=== PATIENT | female | born 1945 | race Caucasian/White ===

== ENCOUNTER → 2023-10-23 12:22 | Outpatient (REF) | payer OTHER, SELFPAY | LOC: RAD 12:22 | PROVIDERS: ATTENDING PHYSICIAN Urology; FAMILY PHYSICIAN Family Medicine | DX: N28.89 Other specified disorders of kidney and ureter (principal) | CPT/HCPCS: 71260; 74170; Q9967 ==

== ENCOUNTER → 2023-11-13 10:12 | Outpatient (REF) | payer OTHER, SELFPAY | LOC: RAD 10:12 | PROVIDERS: ATTENDING PHYSICIAN Urology; FAMILY PHYSICIAN Family Medicine | DX: N28.89 Other specified disorders of kidney and ureter (principal); N26.1 Atrophy of kidney (terminal) | CPT/HCPCS: 78708; A9539 ==

== ENCOUNTER → 2023-11-30 11:29 | Outpatient (REF) | payer OTHER, SELFPAY | LOC: RADI 11:29 | PROVIDERS: ATTENDING PHYSICIAN Internal Medicine Cardiovascular Disease; FAMILY PHYSICIAN Family Medicine | DX: N28.89 Other specified disorders of kidney and ureter (principal) ==

== ENCOUNTER 2024-01-09 11:27 | Day surgery (SDC) | payer OTHER, SELFPAY ==
[2024-01-09] VITALS (18 sets, daily range): BP systolic 74–175; BP diastolic 55–88
[2024-01-09 07:58] LABS: % Basophils 1.3 % (0-2); % Eosinophils 2.4 % (0-6); % Immature Granulocytes 0.4 % (0-0.5); % Lymphocytes 17.7 % (20.5-51.1); % Monocytes 8.2 % (1.7-9.3); Absolute Basophils 0.1 10^3/uL (0-0.2); Absolute Eosinophils 0.2 10^3/uL (0-0.7); Absolute Lymphocytes 1.4 10^3/uL (1.2-3.4); Absolute Monocytes 0.6 10^3/uL (0.1-0.6); Absolute Neutrophils 5.4 10^3/uL (1.4-6.5); Hematocrit 33.3 % (37.0-47.0); Hemoglobin 11.2 g/dL (12.0-16.0); Mean Corp Hgb Conc. 33.6 g/dL (33.0-37.0); Mean Corpuscular Hgb 28.1 pg (27.0-31.0); Mean Corpuscular Volume 83.5 fL (81.0-99.0); Mean Platelet Volume 9.9 fL (7.4-10.4); Nucleated Red Blood Cells % 0 %; Platelet Count 339 10^3/uL (130-400); Red Blood Cell Count 3.99 10^6/uL (4.20-5.40); Red Cell Dist. Width 13.3 % (11.5-14.5); White Blood Cell Count 7.8 10^3/uL (4.8-10.8)
[2024-01-09 08:07] LABS: INR 1.05; PT 13.8 Sec (11.4-14.6)
[2024-01-09 08:08] LABS: APTT 36.7 Sec (23.4-35.0)
[2024-01-09 08:19] LABS: ALT (SGPT) 19 U/L (0-35); AST (SGOT) 25 U/L (14-36); Albumin 4.2 g/dl (3.5-5.0); Alkaline Phosphatase 202 U/L (38-126); Blood Urea Nitrogen 26 mg/dl (7-17); Carbon Dioxide 22 mmol/L (22-30); Chloride 100 mmol/L (98-107); Direct Bilirubin 0.3 mg/dl (0.0-0.4); Glucose 112 mg/dl (70-99); LDH 175 U/L (120-246); Potassium 4.8 mmol/L (3.5-5.1); Sodium 134 mmol/L (135-145); Total Bilirubin 0.6 mg/dl (0.2-1.3); eGFR 41.83
[2024-01-09] MEDS: NSS 1000 IV ×3 (08:22→16:51)
[2024-01-09] MEDS: ANCEF 10 IV (08:37)
[2024-01-09] MEDS: DILAUDID 0.25 MG IV ×2 (11:45→12:43)
--- NOTE | 2024-01-09 17:05 | PTCARENOTE ---
Received Pt from PACU s/p renal ablation. Howell removed at 1600. Pt tolerating regular diet. VSS. Denies pain/discomfort. at bedside. Call khalil within reach.
--- NOTE | 2024-01-09 17:33 | W.PN.UPDATE ---
Update Note
Progress Note Update
Pt doing well post percutaneous microwave ablation left renal mass. Howell removed. Mild discomfort L flank, controlled. Dressing w tiny spot old blood, otherwise dry. L flank mildly tender, no ecchymoses or induration. Anticipate D/C in AM. Follow
up CT or MRI 3-6 mos.
[2024-01-09] MEDS: ROXICODONE 5 MG PO (20:28)
[2024-01-10] MEDS: NSS IV ×2 (01:32→08:34)
--- NOTE | 2024-01-10 07:24 | W.PN.GENERIC ---
Assessment / Plan
-
78 yo female with left renal mass s/p thermal ablation. The procedure was technically successful. She is feeling well. She is voiding spontaneously and tolerating POs
Stable for discharge today
Recommend follow up CT scan in 3 months
Physician Progress Note
Subjective
This is a pleasant 78-year-old female who was found to have a 2.5 cm lesion of the left posterior kidney on CT scan of the lumbar spine in September 2022. A CT scan on November 05, 2023, showed interval growth of this left renal mass compared to the imaging
from September 2022. She underwent renal thermal ablation yesterday. She feels well. She denies any fever, chills, abdominal pain, nausea, vomiting, flank pain, hematuria or dysuria. She is voiding spontaneously. She is tolerating POs
PMH: Renal mass, atrophic left kidney, high cholesterol, hypertension, primary biliary cirrhosis, hyperlipidemia, lumbar radiculopathy, carotid artery disease, PAD, DJD.
PSH: Carotid artery, TKA x2, hysterectomy.
Social History: Patient currently smokes 2 cigarettes daily. She is and lives with her .
Allergies: Latex.
Current Medications: Amlodipine-Benazepril 5-20, dicyclomine 10 mg, Toprol-XL 50 mg, Ursodiol 300 mg, Vytorin 10-20,.
Objective
Vital Signs
Temp Pulse Resp BP Pulse Ox
99.5 F 94 20 155/71 96
01/09/24 23:31 01/09/24 23:31 01/09/24 23:31 01/09/24 23:31 01/09/24 23:31
Lab Results
01/09/24 07:46
01/09/24 07:46
This is a WNWD 78 yo female in NAD. COlor is good. Skin is warm and dry. She is missing left upper front tooth. Neck is supple. Heart is regular. Lungs are CTA. Abdomen is soft and nentender with bowel sounds. No CVAT. Dressing with small
drop of dried blood. No hematoma. No CCE. Ambulating independently
[2024-01-10 07:41] VITALS: BP 164/77
--- NOTE | 2024-01-10 09:18 | CM ---
Alert awake oriented patient who lives with her Jarocho in a 3 story town home with 4 steps to enter and 14 steps to bed/bathroom. She is independent in driving and all activates of daily living.No adaptive device. Howell removed Pt
voiding.Jarocho will drive her home.
No VN in past . No SNF hx
Pharmacy [facility] [address]
PCP Dr Cheek
PLAN Home with no anticipated needs
== END 2024-01-10 09:24 | disposition home or self-care (01) ==
LOC: RADI 11:27
PROVIDERS: ATTENDING PHYSICIAN Radiology Vascular & Interventional Radiology; FAMILY PHYSICIAN Family Medicine; REFERRING PHYSICIAN Urology
DX: N28.89 Other specified disorders of kidney and ureter (principal)
CPT/HCPCS: 50592; 36415; 77013; 80053; 82248; 83615; 85025; 85610; 85730

== ENCOUNTER → 2024-05-15 16:30 | Outpatient (REF) | payer OTHER, SELFPAY | LOC: RAD 16:30 | PROVIDERS: ATTENDING PHYSICIAN Urology; FAMILY PHYSICIAN Family Medicine | DX: C64.2 Malignant neoplasm of left kidney, except renal pelvis (principal) | CPT/HCPCS: 74170; Q9967 ==

== ENCOUNTER → 2024-06-25 13:18 | Outpatient (REF) | payer OTHER, SELFPAY | LOC: RAD 13:18 | PROVIDERS: ATTENDING PHYSICIAN Urology; FAMILY PHYSICIAN Family Medicine | DX: N28.89 Other specified disorders of kidney and ureter (principal); I82.220 Acute embolism and thrombosis of inferior vena cava | CPT/HCPCS: 71260; 74170; Q9967 ==

== ENCOUNTER → 2024-10-01 08:06 | Outpatient (REF) | payer OTHER, SELFPAY | LOC: RAD 08:06 | PROVIDERS: ATTENDING PHYSICIAN Urology; FAMILY PHYSICIAN Family Medicine | DX: C64.9 Malignant neoplasm of unspecified kidney, except renal pelvis (principal); N28.89 Other specified disorders of kidney and ureter | CPT/HCPCS: 74178; Q9967 ==

== ENCOUNTER → 2024-12-30 07:03 | Outpatient (REF) | payer OTHER, SELFPAY | LOC: RAD 07:03 | PROVIDERS: ATTENDING PHYSICIAN Nurse Practitioner Adult Health; FAMILY PHYSICIAN Family Medicine; REFERRING PHYSICIAN Internal Medicine | DX: C64.9 Malignant neoplasm of unspecified kidney, except renal pelvis (principal) | CPT/HCPCS: 71260; 74178; Q9967 ==

== ENCOUNTER 2025-03-06 15:00 | Emergency (ER) | payer OTHER, SELFPAY ==
[2025-03-06 15:17] VITALS: BP 145/70
[2025-03-06 15:43] LABS: Hematocrit 36.1 % (37.0-47.0); Hemoglobin 11.9 g/dL (12.0-16.0); Mean Corp Hgb Conc. 33.0 g/dL (33.0-37.0); Mean Corpuscular Volume 80.6 fL (81.0-99.0); Nucleated Red Blood Cells % 0 %; Platelet Count 154 10^3/uL (130-400); Red Cell Dist. Width 16.3 % (11.5-14.5)
[2025-03-06 15:58] LABS: ALT (SGPT) 20 U/L (0-35); AST (SGOT) 29 U/L (14-36); Albumin 3.2 g/dl (3.5-5.0); Alkaline Phosphatase 131 U/L (38-126); Blood Urea Nitrogen 25 mg/dl (7-17); Calcium 8.5 mg/dl (8.4-10.2); Carbon Dioxide 21 mmol/L (22-30); Chloride 106 mmol/L (98-107); Glucose 131 mg/dl (70-99); Potassium 4.1 mmol/L (3.5-5.1); Sodium 133 mmol/L (135-145); Total Protein 6.1 g/dl (6.3-8.2); eGFR 37.80
[2025-03-06 18:53] VITALS: BMI 25.5
[2025-03-06 19:02] VITALS: BP 172/94
[2025-03-06 20:00] VITALS: BP 178/90
--- NOTE | 2025-03-06 20:06 | ED.GENMED ---
History of Present Illness
General
Chief Complaint: Swelling
Source: patient, spouse and family
Exam Limitations: none
Time Seen by Provider: 03/06/25 19:44
Nursing documentation reviewed up to this point in time: agreed with
History of Present Illness
History of Present Illness:
Note:
CHIEF COMPLAINT(S)
Swelling of the legs for two days.
HISTORY OF PRESENT ILLNESS
The patient is an 80-year-old female with a history of renal cell carcinoma treated with radio ablation. She presents with bilateral leg swelling, which has been present for the past two days. She describes this episode as the most significant
swelling she has experienced. The patient is on Apixaban (Eliquis) and has been compliant with the medication. She reports no known venous clots but experiences difficulty breathing, especially on the left side, which resolves. She denies any
abdominal swelling or pain. The numbness and pain were noted under her toes and were initially different on one side compared to the other, suggesting a potential pinched nerve. The patient also reports chronic lower back pain.
ADDITIONAL HISTORY OBTAINED FROM SOURCES OTHER THAN THE PATIENT
Per the family member accompanying the patient, the patient had numbness and difficulty walking, with pain in the toes. The family member also helped communicate information as the patient is hard of hearing.
PAST MEDICAL AND SURGICAL HISTORY
The patient has a history of renal cell carcinoma treated with radio ablation. There were no surgeries performed on the kidneys.
SOCIAL DETERMINANTS AFFECTING HEALTH
The patient was brought in by a family member who assists with communication, indicating potential hearing impairment-related communication barriers.
REVIEW OF SYSTEMS
- Cardiovascular: Bilateral leg swelling.
- Respiratory: Intermittent dyspnea, particularly on the left side.
- Neurological: Numbness under the toes, difficulty walking.
- Musculoskeletal: Chronic lower back pain.
PHYSICAL EXAM
General: Alert, no acute distress.
Skin: Warm, dry.
Head: Normocephalic, atraumatic.
Neck: Supple, trachea midline.
Eyes, Ears, Nose, Mouth, and Throat: Oral mucosa moist.
Cardiovascular: Normal peripheral perfusion, no edema.
Respiratory: Respirations are non-labored.
Gastrointestinal: Abdomen non-distended.
Back: Normal range of motion, normal alignment.
Musculoskeletal: Normal ROM, normal strength.
Neurological: Alert and oriented to person, place, time, and situation, no focal neurological deficits observed.
Psychiatric: Cooperative, appropriate mood & affect.
PROBLEM LIST
Acute Problems:
- Bilateral leg swelling
- Dyspnea
- Numbness and pain under the toes
Chronic Problems:
- Chronic lower back pain
- Renal cell carcinoma
PLAN
1. Order an ultrasound to evaluate the legs for potential blood clots.
2. Obtain chest X-ray to rule out signs of heart failure.
3. Conduct laboratory tests to assess renal function and other potential causes of symptoms.
4. Review medical records for any relevant prior diagnostic results.
DIFFERENTIAL DIAGNOSIS
The differential diagnosis includes, in no particular order and is not limited to:
1. Congestive heart failure
2. Deep vein thrombosis
3. Lymphedema
4. Chronic venous insufficiency
5. Acute renal failure
6. Peripheral neuropathy
7. Pulmonary embolism
8. Venous thromboembolism
9. Medication side effect (Apixaban)
10. Hypoalbuminemia
CARE-UPDATE
03/07/25:47
CT scan indicates progression of thrombosis involving the inferior vena cava up to the atrium and extending into the left renal vein, correlating with the observed increase in patients edema.
CARE-UPDATE
03/07/25:[address] Hung, vascular surgeon, who recommends PRANAY WRAPs to bilateral lower extremities. Follow-up with oncology at [place] is advised.
Disposition:
SUMMARY OF ENCOUNTER
The patient was seen in the emergency department to address significant bilateral leg swelling and concerns related to renal cell carcinoma and potential thrombosis progression. The visit included diagnostic considerations and consultations to
evaluate a chronic thrombosis in the inferior vena cava extending into bilateral lower extremities.
DISPOSITION
The patient was discharged with instructions to follow up with [facility].
ASSESSMENT
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
MANAGEMENT OF THE PATIENTS CARE WAS DISCUSSED WITH
Consultation with Dr. Hung, a vascular surgeon, confirmed the diagnosis of chronic thrombosis and concluded no further indication for thrombolytic or surgical intervention at this time.
INDEPENDENT REVIEW OF LABS AND INTERPRETATION OF TESTS
My independent interpretation of recent CT imaging indicates the progression of thrombosis involving the inferior vena cava up to the atrium and extending into the left renal vein, correlating with the observed increase in the patients edema.
FOLLOW-UP INSTRUCTIONS
The patient should follow up with [facility] for continued oncology management and any further interventions deemed necessary.
MEDICATION RECONCILIATION
Current medications include Apixaban (Eliquis).
MEDICAL DECISION MAKING
- Number and Complexity of Problems Addressed: Chronic conditions affecting care include renal cell carcinoma and thrombosis. Differential Diagnosis includes:
1. Congestive heart failure
2. Deep vein thrombosis
3. Lymphedema
4. Chronic venous insufficiency
5. Acute renal failure
6. Peripheral neuropathy
7. Pulmonary embolism
8. Venous thromboembolism
9. Medication side effect (Apixaban)
10. Hypoalbuminemia
- Data:
Category 1: Non-emergency department records reviewed include the patients past CT scan results showing thrombosis progression.
Category 2: Clinical information was obtained from family members accompanying the patient due to her hearing impairment and to ensure accurate history taking.
Category 3: Discussion of management with Dr. Hung, vascular surgeon, confirmed no need for immediate thrombolytic or surgical interventions.
-Risk: Prescription drug management is ongoing with Apixaban for anticoagulation therapy, requiring regular monitoring for potential complications from thrombosis.
DIAGNOSIS
1. 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
2. Renal cell carcinoma - ICD-10: C64.9
Past History
Past History
ED Past Medical History: HTN, Hypercholesterolemia and Other (Cirrhosis (unknown etiology), carotid stenosis)
ED Past Surgical History: Orthopedic and Other (Carotids)
Social History
Alcohol: Occasional
Phy Exam
Physical Exam
Physical Exam:
,.
Scores
Heart Failure Risk
Heart Failure Risk Score: Not Applicable
Course
Orders/Labs/Results
Orders:
Orders
03/06/25 15:33
Complete Blood Count/With Diff Urgent
Comprehensive Metabolic Panel Urgent
03/06/25 20:03
US Periph Venous LOWER Ext Leonel Urgent
Comment:
Reason For Exam: bilateral leg swelling
03/06/25 20:35
CT Chest/abd/pel W Iv Cont Urgent
Comment:
Reason For Exam: extensive thromosis, leg swelling
03/06/25 21:28
NT-proBNP Urgent
Troponin I Urgent
03/06/25 21:59
Acetaminophen [Tylenol] 1,000 mg PO NOW STA
03/06/25 22:17
Pranay Wrap Left-Treatment ONCE
Pranay Wrap Right-Treatment ONCE
Abnormal Lab Results
03/06/25
15:33
WBC 11.3 H 10^3/uL
(4.8-10.8)
Hgb 11.9 L g/dL
(12.0-16.0)
Hct 36.1 L %
(37.0-47.0)
MCV 80.6 L fL
(81.0-99.0)
MCH 26.6 L pg
(27.0-31.0)
RDW 16.3 H %
(11.5-14.5)
MPV 11.0 H fL
(7.4-10.4)
Abs Immat Gran (auto) 0.1 H 10^3/uL
(0-0.05)
Absolute Neuts (auto) 9.4 H 10^3/uL
(1.4-6.5)
Absolute Lymphs (auto) 1.0 L 10^3/uL
(1.2-3.4)
Absolute Monos (auto) 0.8 H 10^3/uL
(0.1-0.6)
Neutrophils % 83.3 H %
(42.2-75.2)
Lymphocytes % 9.0 L %
(20.5-51.1)
Sodium 133 L mmol/L
(135-145)
Carbon Dioxide 21 L mmol/L
(22-30)
BUN 25 H mg/dl
(7-17)
Creatinine 1.4 H mg/dL
(0.6-1.0)
Glucose 131 H mg/dl
(70-99)
Alkaline Phosphatase 131 H U/L
(38-126)
Total Protein 6.1 L g/dl
(6.3-8.2)
Albumin 3.2 L g/dl
(3.5-5.0)
03/06/25 15:33
03/06/25 15:33
Vital Signs
Initial and Last Documented VS:
Initial Vital Signs
Temp Pulse Resp BP Pulse Ox
98.2 F 90 16 145/70 97
03/06/25 15:17 03/06/25 15:17 03/06/25 15:17 03/06/25 15:17 03/06/25 15:17
Last Documented Vital Signs
Temp Pulse Resp BP Pulse Ox
98.2 F 100 25 154/88 98
03/06/25 15:17 03/06/25 22:20 03/06/25 22:20 03/06/25 22:20 03/06/25 22:20
*Pulse Oximetry
SaO2: 97
Oxygen Mode of Delivery: Room air
Patient hypoxic: no
*Critical Care Note
Total Time (30-74mins, 75-104mins- exclusive of procedures): Not Applicable
ED Attending Note
-
Portions of this chart may have been created with voice recognition software.� Occasional wrong word or��sound alike� substitutions may have occurred due to the inherent limitations of voice recognition software.
Discharge Plan
Departure
Patient Disposition: Home (Routine Discharge)
Date of Disposition: 03/06/25
Time of Disposition: 22:18
Patient with high blood pressure during this ER visit?: Yes
Condition: Fair
Discharge Problem:
Chronic thrombosis of inferior vena cava, Bilateral edema of lower extremity
Instructions: Swelling, BLOOD PRESSURE
Prescriptions:
No Action
metoprolol succinate 50 MG tablet extended release 24 hr
75 mg PO HS
ursodiol 300 MG capsule
300 mg PO TID
Metamucil Packet
1 packet PO DAILYPRN PRN (Reason: CONSTIPATION)
loperamide 2 mg Tablet
2 mg PO Q6HPRN PRN (Reason: DIRRHEA)
sodium bicarbonate 650 mg Tablet
650 mg PO BID
amlodipine [Norvasc] 10 mg Tablet
10 mg PO DAILY
hydralazine 50 mg Tablet
50 mg PO BID
dicyclomine 10 mg Capsule
10 mg PO HS
ezetimibe-simvastatin 10-20 mg Tablet
1 tab PO DAILY@1200
Inlyta 1 mg Tablet
3 mg PO BID
Eliquis 5 mg Tablet
5 mg PO BID
potassium chloride 20 mEq Tablet Extended Release
20 meq PO DAILY
Referrals:
Caridad Cheek DO [Family Provider, Family Practice]
Activity Restrictions/Additional Instructions:
Follow up at [facility] next week. Use PRANAY wrap or compression stockings for both legs
Interventions
Interventions:
*Risk Screen - Suicide Last Done: 03/06/25 15:01
*General Assessment Last Done: 03/06/25 18:53
*Neglect/Abuse Screening Last Done: 03/06/25 15:18
*ED- Fall Risk Assessment Last Done: 03/06/25 18:53
*ED COVID-19 Vaccine History Last Done: 03/06/25 22:59
*ED Influenza Vaccine History Last Done: 03/06/25 18:53
*Nursing Disposition Last Done: 03/06/25 22:40
ED- Cardiac Assessment Last Done: 03/06/25 19:15
ED- Pulmonary Assessment Last Done: 03/06/25 19:15
ED-Skin Assessment Last Done: 03/06/25 19:15
Discharge Date and Time
Discharge Date/Time: 03/06/25 23:00
Print Language: SCOTTISH
[2025-03-06 22:01] LABS: Troponin I 0.033 ng/ml
[2025-03-06] MEDS: TYLENOL 1000 MG PO (22:04)
[2025-03-06 22:20] VITALS: BP 154/88
== END 2025-03-06 23:00 | disposition home or self-care (01) ==
LOC: EMR 15:00
PROVIDERS: Student in an Organized Health Care Education/Training Program; EMERGENCY PHYSICIAN Emergency Medicine; FAMILY PHYSICIAN Family Medicine
DX: I82.221 Chronic embolism and thrombosis of inferior vena cava (principal); R22.43 Localized swelling, mass and lump, lower limb, bilateral; C64.2 Malignant neoplasm of left kidney, except renal pelvis; E78.00 Pure hypercholesterolemia, unspecified; I10 Essential (primary) hypertension; K74.60 Unspecified cirrhosis of liver; Z79.01 Long term (current) use of anticoagulants
CPT/HCPCS: 99284; 71260; 74177; 80053; 83880; 84484; 85025; 93970; Q9967